=== PATIENT | male | born 1975 | race Caucasian/White ===

== ENCOUNTER 2017-04-02 22:49 | Emergency (ER) | payer SELFPAY ==
[~2017-04-02] VITALS: Ht 177.8 cm; Wt 72.6 kg
--- OUTSIDE RECORDS SUMMARY | 2017-04-02 22:57 | XMS REPORT ---
Author JENNY Dubois [employer] Address Unknown Phone Unavailable Care Team Providers Care Consulting Solution Director Name Role Phone JENNY CALDERON CP Unavailable Allergies, Adverse Reactions, Alerts Substance Reaction Event Type Penicillins Info Not Available Non Drug Allergy Problems Problem Type Condition Code Onset Dates Condition Status Assessment Bipolar disorder, unspecified F31.9 Active Problem Unspecified episodic mood disorder 296.90 Active Problem Posttraumatic stress disorder 309.81 Active Assessment PTSD (post-traumatic stress disorder) F43.10 Active Assessment Panic disorder/agoraphobia, 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 Problem Panic disorder/agoraphobia, 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 Problem PTSD (post-traumatic stress disorder) F43.10 Active Problem Bipolar disorder, unspecified F31.9 Active Problem Depressive disorder, not elsewhere classified 311 Active Problem Social phobia 300.23 Active Problem Combinations of drug dependence excluding opioid type drug, 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 Active Problem Unspecified psychosis 298.9 Active Medications Medication Code System Code Instructions Start Date End Date Status Dosage HydrOXYzine HCl [facility] [address]-15 50 MG Orally 2 times a day for anxiety May 28, 2014 1 Tablet Loxapine Succinate [facility] [address]-00 10 MG Orally Twice a day Feb 11, 2015 1 capsule Procedures Procedure Coding System Code Date Office Visit, Est Pt., Level 4 CPT-4 88465 Feb 11, 2015 Vital Signs Date/Time: Feb 11, 2015 Cardiac Monitoring Heart Rate 84 bpm Weight 239.0 lbs Height 69 in BMI 35.29 Index Blood Pressure Diastolic 80 mmHg Blood Pressure Systolic 130 mmHg Results No Known Results Summary Purpose eClinicalWorks Submission
--- OUTSIDE RECORDS SUMMARY | 2017-04-02 22:57 | XMS REPORT | Continuity of Care Document ---
Author Author [facility] Address Unknown Phone Unavailable Allergies Active Description Code Type Severity Reaction Onset Reported/Identified Relationship to Patient Clinical Status Yes Penicillins Drug Allergy N/A N/A 04/09/2014 Medications There is no data. Problems Date Dx Coded Attending Type Code Diagnosis Diagnosed By 03/18/2014 THI JOHN PHD 298.9 P PSYCHOSIS NOS 03/18/2014 THI JOHN PHD 304.80 SA POLYSUB DEP 03/18/2014 THI JOHN PHD 311 MO DEPRESS NOS 03/18/2014 JENNY CALDERON APRN 298.9 P PSYCHOSIS NOS 03/18/2014 JENNY CALDERON APRN 304.80 SA POLYSUB DEP 03/18/2014 JENNY CALDERON APRN 311 MO DEPRESS NOS 03/18/2014 JENNY CALDERON APRN 298.9 P PSYCHOSIS NOS 03/18/2014 DELMA CALDERON APRNA J 304.80 SA POLYSUB DEP 03/18/2014 DELMA CALDERON APRNA J 311 MO DEPRESS NOS 04/09/2014 DELMA CALDERON APRNA Manjit 296.90 MOOD DISORDER NOS 04/09/2014 DELMA CALDERON APRNA Manjit 300.23 AN SOCIAL PHOBIA 04/09/2014 DELMA CALDERON APRNA Manjit 309.81 AN PTSD 04/09/2014 DELMA CALDERON APRNA Manjit 296.90 MOOD DISORDER NOS 04/09/2014 DELMA CALDERON APRNA J 300.23 AN SOCIAL PHOBIA 04/09/2014 JENNY CALDERON APRN 309.81 AN PTSD Procedures Code [place] [address] PSYCH DIAGNOSTIC EVALUATION 03/18/2014 Results There is no data. Encounters ACCT No. Visit Date/Time Discharge Status Pt. Type Provider Facility Loc./Unit Complaint [id number] 05/28/2014 15:18:00 05/28/2014 23:59:59 CLS Outpatient JENNY CALDERON APRN [id number] 05/28/2014 15:18:00 05/28/2014 23:59:59 CLS Outpatient JENNY CALDERON APRN [id number] 03/18/2014 08:38:00 03/18/2014 23:59:59 [facility] Outpatient DORA BRUNSON, THI Castellanos
--- NOTE | 2017-04-03 02:25 | ED Cough/URI ---
General Chief Complaint: Cough/Cold/Flu Symptoms Stated Complaint: CHEST CONGESTION,CP ON 1 SIDE WHILE COUGHING Nursing Triage Note: PT REPORTS COUGH/COLD/CONGESTION X 2 WEEKS. REPORTS VIVAS X 1 WEEK. Source: patient Exam Limitations: no limitations History of Present Illness Date Seen by Provider: Apr 03, 2017 Time Seen by Provider: 02:12 Initial Comments Here with cough and congestion for the last 2 weeks. Missed work yesterday because of this is about to today. Denies current fever. Does have nasal congestion but no runny nose. Denies sore throat. It has some chest discomfort with cough. That has improved since being here. Denies weakness, diaphoresis or vomiting. Timing/Duration: week Severity/Quality: mild Prior Episodes/Possible Cause: no prior episodes Associated Symptoms: cough, nasal congestion, shortness of breath, sore throat Allergies and Home Medications Allergies Coded Allergies: Penicillins (Verified Allergy, Unknown, 04/02/17) Home Medications No Active Prescriptions or Reported Meds Constitutional: see HPI, No chills, No fever EENTM: see HPI, nose congestion, throat pain Respiratory: cough Cardiovascular: see HPI, No palpitations Gastrointestinal: see HPI Genitourinary: no symptoms reported Musculoskeletal: no symptoms reported Skin: no symptoms reported Past Zazuarg-Hpvaoa-Yywqja Hx Patient Social History Alcohol Use: Denies Use Recreational Drug Use: No Smoking Status: Current Everyday Smoker Type Used: Cigarettes Recent Foreign Travel: No Contact w/Someone Who Travel: No Recent Infectious Disease Expo: No Recent Hopitalizations: No Seasonal Allergies Seasonal Allergies: No Surgeries History of Surgeries: No Respiratory History of Respiratory Disorde: No Cardiovascular History of Cardiac Disorders: No Neurological History of Neurological Disord: No Genitourinary History of Genitourinary Disor: No Gastrointestinal History of Gastrointestinal Di: No Musculoskeletal History of Musculoskeletal Dis: No Endocrine History of Endocrine Disorders: No HEENT History of HEENT Disorders: No Cancer History of Cancer: No Psychosocial History of Psychiatric Problem: Yes Behavioral Health Disorders: Anxiety, PTSD, Bipolar Integumentary History of Skin or Integumenta: No Blood Transfusions History of Blood Disorders: No Adverse Reaction to a Blood Tr: No Reviewed Nursing Assessment Reviewed/Agree w Nursing PMH: Yes Physical Exam Vital Signs Vital Sign - Last 12Hours 04/02/17 23:45 Temp 97.8 Pulse 98 Resp 20 B/P (MAP) 151/95 (113) Pulse Ox 96 O2 Delivery Room Air Capillary Refill : Less Than 3 Seconds General Appearance: WD/WN, no apparent distress HEENT: PERRL/EOMI, TMs normal, pharyngeal erythema, other (moderate bilateral nasal congestion) Neck: full range of motion, supple Respiratory: lungs clear, normal breath sounds Cardiovascular: regular rate, rhythm, no murmur Gastrointestinal: non tender, soft Extremities: non-tender, normal inspection Neurologic/Psychiatric: alert, oriented x 3 Skin: normal color, warm/dry Progress/Results/Core Measures Suspected Sepsis Recent Fever Within 48 Hours: No Infection Criteria Present: None New/Unexplained Altered Menta: No Sepsis Screen: No Definite Risk Sepsis Diagnosis: SIRS Temperature:97.8 Pulse: 98 Respiratory Rate: 20 Blood Pressure 151 /95 Mean: 113 Results/Orders My Orders Orders - ALEC MUHAMMAD MD Chest Pa/Lat (2 View) (04/03/17 01:21) Ekg Tracing (04/03/17 01:21) Vital Signs/I&O Vital Sign - Last 12Hours 04/02/17 04/02/17 23:45 23:45 Temp 97.8 Pulse 98 Resp 20 B/P (MAP) 151/95 (113) Pulse Ox 96 O2 Delivery Room Air Capillary Refill : Less Than 3 Seconds Blood Pressure Mean: 113 Progress Note : Progress Note Seen and evaluated. EKG and chest x-ray ordered. Offered laboratory evaluation. Patient states he would prefer not to do that he feels fine now. He was hoping for work note and he will get that so he can go home and rest. Patient discharged home with return precautions. Patient verbalize understanding instructions and agreement with plan. ECG Initial ECG Impression Date: Apr 03, 2017 Initial ECG Impression Time: 01:16 Initial ECG Rate: 95 Initial ECG Rhythm: Normal Sinus Initial ECG Impression: Normal Initial ECG Comparisson: No Previous ECG Available Comment Sinus rhythm with normal axis. No evidence of ST elevation [place]. No previous available for comparison. Interpreted by me. Diagnostic Imaging Diagonstic Imaging: Xray Plain Films/CT/US/NM/MRI: chest Comments No acute findings. Departure Impression Impression: Primary Impression: Upper respiratory infection Qualified Codes: J06.9 - Acute upper respiratory infection, unspecified Disposition: 01 HOME, SELF-CARE Condition: Stable Departure-Patient Inst. Decision time for Depature: 02:33 Referrals: NO,LOCAL PHYSICIAN (PCP/Family) Primary Care Physician Patient Instructions: Viral Upper Respiratory Infection, Adult (DC) Add. Discharge Instructions: All discharge instructions reviewed with patient and/or family. Voiced understanding. May take Tylenol 1000 mg every 8 hours as needed for fever or pain. You may take ibuprofen 800 mg every 8 hours as needed for fever or pain. Follow-up with your Dr. in a few days for recheck. You may use Afrin nasal spray or the generic, 12 hour relief, 2 sprays to each nostril twice daily for 3 days only and then stop. Do not use more than 3 days. Return for worse pain, fever, vomiting, weakness, rhythm problems or other concerns as needed. Scripts No Active Prescriptions or Reported Meds Work/School Note: Work Release Form Date Seen in the Emergency Department: Apr 02, 2017 Return to Work: Apr 04, 2017 Restrictions: No Restrictions ALEC MUHAMMAD MD Apr 03, 2017 02:25
[2017-04-03 02:42] VITALS: BP 149/89
--- NOTE | 2017-04-03 08:11 | Diagnostic Imaging Report ---
INDICATION: Cough and chest pain. Time of exam: 1:48 AM No prior studies are available for comparison. FINDINGS: The heart size is normal. The lungs are clear. No pleural effusion or pneumothorax is identified. The pulmonary vascularity is normal. IMPRESSION: No acute abnormality detected. Dictated by: Dictated on workstation # [id number]
== END 2017-04-03 02:42 | disposition home or self-care (01) ==
LOC: EDUNIT# 22:49 → ER 22:52
DX: J06.9 Acute upper respiratory infection, unspecified (principal); F41.9 Anxiety disorder, unspecified; F43.10 Post-traumatic stress disorder, unspecified; F31.9 Bipolar disorder, unspecified; F17.210 Nicotine dependence, cigarettes, uncomplicated
CPT/HCPCS: 71046; 93005

== ENCOUNTER 2017-05-02 16:31 | Emergency (ER) | payer SELFPAY ==
[~2017-05-02] VITALS: Ht 177.8 cm; Wt 117.9 kg
--- OUTSIDE RECORDS SUMMARY | 2017-05-02 16:35 | XMS REPORT | Continuity of Care Document ---
Author Author [facility] Address Unknown Phone Unavailable Allergies Active Description [...] CALDERON APRN 304.80 SA POLYSUB DEP 03/18/2014 JENYN CALDERON APRN 311 MO DEPRESS NOS 03/18/2014 [...] APRNA Manjit 300.23 AN SOCIAL PHOBIA 04/09/2014 JENNY CALDERON APRN 309.81 AN PTSD Procedures Code [place] [address] PSYCH DIAGNOSTIC EVALUATION 03/18/2014 Results There is no data. Encounters ACCT No. Visit Date/Time Discharge Status Pt. Type Provider Facility Loc./Unit Complaint [id number] 05/28/2014 15:18:00 05/28/2014 23:59:59 CLS Outpatient JENNY CALDERON APRN [id number] 05/28/2014 15:18:00 05/28/2014 23:59:59 CLS Outpatient JENNY CALDERON APRN [id number] 03/18/2014 08:38:00 03/18/2014 23:59:59 [facility] Outpatient DORA BRUNSON, THI Castellanos
[2017-05-02] MEDS ORDERED: CYCL10TA9 PO (17:44)
--- NOTE | 2017-05-02 17:44 | ED Back Pain ---
General Chief Complaint: Back Problems Stated Complaint: LOWER BACK PAIN Nursing Triage Note: pt reports low back pain since yesterday and denies any known injury. Nursing Sepsis Screen: No Definite Risk Source of Information: Patient Exam Limitations: No Limitations History of Present Illness Date Seen by Provider: May 02, 2017 Time Seen by Provider: 17:28 Initial Comments Here with report of low back pain since yesterday. States it's on the left and right and does not radiate. It encompasses his whole low back. He works at a [employer]. It does not remember any specific injury but does do a lot of lifting. Denies numbness between his legs, weakness or difficulty with going to the bathroom or walking. Location: Lumbar Spine, Paraspinous Muscles Timing/Duration: 1-2 Days Severity: Moderate Pain/Injury Location: Back Radiation: Other (none) Method of Injury: Unknown Modifying Factors: Improves With Immobilization, Worse With Movement, Improves With Rest Associated Symptoms: No weakness, No numbness in legs/feet, No tingling in legs /feet, lower back pain, No loss of bladder control, No loss of bowel control Allergies and Home Medications Allergies Coded Allergies: Penicillins (Verified Allergy, Unknown, 04/02/17) Home Medications No Active Prescriptions or Reported Meds Constitutional: see HPI, No chills, No fever Respiratory: no symptoms reported Cardiovascular: no symptoms reported Gastrointestinal: no symptoms reported, No abdominal pain, No nausea, No vomiting Genitourinary: No hesitancy, No incontinence Musculoskeletal: back pain, muscle pain Skin: no symptoms reported Psychiatric/Neurological: No Symptoms Reported Past Brvoihi-Dftpok-Ectkhz Hx Patient Social History Alcohol Use: Denies Use Recreational Drug Use: No Smoking Status: Current Everyday Smoker Type Used: Cigarettes Recent Foreign Travel: No Contact w/Someone Who Travel: No Recent Infectious Disease Expo: No Recent Hopitalizations: No Physical Abuse: No Sexual Abuse: No Mistreated: No Fear: No Seasonal Allergies Seasonal Allergies: No Surgeries History of Surgeries: No Respiratory History of Respiratory Disorde: No Cardiovascular History of Cardiac Disorders: No Neurological History of Neurological Disord: No Genitourinary History of Genitourinary Disor: No Gastrointestinal History of Gastrointestinal Di: No Musculoskeletal History of Musculoskeletal Dis: No Endocrine History of Endocrine Disorders: No HEENT History of HEENT Disorders: No Cancer History of Cancer: No Psychosocial History of Psychiatric Problem: Yes Behavioral Health Disorders: Anxiety, PTSD, Bipolar Suicide Risk Score: 0 Integumentary History of Skin or Integumenta: No Blood Transfusions History of Blood Disorders: No Adverse Reaction to a Blood Tr: No Reviewed Nursing Assessment Reviewed/Agree w Nursing PMH: Yes Family Medical History Significant Family History: No Pertinent Family Hx Physical Exam Vital Signs Vital Signs - First Documented 05/02/17 17:16 Temp 97.9 Pulse 79 Resp 20 B/P (MAP) 160/98 (118) Pulse Ox 98 Capillary Refill : Less Than 3 Seconds General Appearance: No Apparent Distress, WD/WN Neck: Non Tender, Supple Cardiovascular: Regular Rate, Rhythm, No Murmur Respiratory: Lungs Clear, Normal Breath Sounds Gastrointestinal: Non Tender, Soft Back: Decreased Range of Motion, Muscle Spasm, No Vertebral Tenderness Extremity: Normal Range of Motion, Non Tender Neurologic/Psychiatric: Alert, Oriented x3 Skin: Normal Color, Warm/Dry Progress/Results/Core Measures Results/Orders Vital Signs/I&O Vital Sign - Last 12Hours 05/02/17 17:16 Temp 97.9 Pulse 79 Resp 20 B/P (MAP) 160/98 (118) Pulse Ox 98 Blood Pressure Mean: 118 Progress Note : Progress Note Seen and evaluated. Discharge home with return precautions. Patient verbalize understanding instructions and agreement with plan. Departure Impression Impression: Primary Impression: Back strain Qualified Codes: S39.012A - Strain of muscle, fascia and tendon of lower back , initial encounter Disposition: 01 HOME, SELF-CARE Condition: Stable Departure-Patient Inst. Decision time for Depature: 17:42 Referrals: NO,LOCAL PHYSICIAN (PCP/Family) Primary Care Physician Patient Instructions: Low Back Pain (DC), Lumbar Muscle Strain (DC) Add. Discharge Instructions: All discharge instructions reviewed with patient and/or family. Voiced understanding. You may take ibuprofen 800 mg every 8 hours as needed for pain. You may take Tylenol/acetaminophen 1000 mg every 8 hours as needed for pain if you're not taking the prescribed pain medicine. Do not take both as they have acetaminophen in them. You may use othu-wof-osohutr preparations such as I see hot with lidocaine for similar item over the area of concern to reduce pain. Return for worse pain, fever, vomiting, weakness, breathing problems, difficulty walking or going to the bathroom or other concerns as needed. Scripts Prednisone (Prednisone) 20 Mg Tab 40 MG PO DAILY, #14 TAB 0 Refills Prov: ALEC MUHAMMAD MD 05/02/17 Hydrocodone Bit/Acetaminophen (Hydrocodone/Acetaminophen 5/325mg Tablet) 1 Tab Tab 1-2 EACH PO Q6H Y for PAIN-MODERATE, #10 TAB 0 Refills Prov: ALEC MUHAMMAD MD 05/02/17 Cyclobenzaprine HCl (Cyclobenzaprine HCl) 10 Mg Tablet 10 MG PO Q8H Y for SPASMS, #15 TAB 0 Refills Prov: ALEC MUHAMMAD MD 05/02/17 Work/School Note: Local Medical Staff Listing, Work Release Form Date Seen in the Emergency Department: May 02, 2017 Return to Work: May 04, 2017 Restrictions: No Restrictions ALEC MUHAMMAD MD May 02, 2017 17:44
[2017-05-02] MEDS ORDERED: PRD20T PO (17:45)
[2017-05-02] MEDS ORDERED: ACHD5005 PO (17:45)
[2017-05-02 17:49] VITALS: BP 160/98
== END 2017-05-02 17:48 | disposition home or self-care (01) ==
LOC: EDUNIT# 16:31 → ER 16:32
DX: S39.012A Strain of muscle, fascia and tendon of lower back, initial encounter (principal); F41.9 Anxiety disorder, unspecified; F43.10 Post-traumatic stress disorder, unspecified; F31.9 Bipolar disorder, unspecified; F17.210 Nicotine dependence, cigarettes, uncomplicated; Z88.0 Allergy status to penicillin; X50.0XXA Overexertion from strenuous movement or load, initial encounter
CPT/HCPCS: 99281